=== PATIENT | female | born 1990 | race Caucasian/White ===

== ENCOUNTER 2017-06-27 14:58 | Emergency (ER) | payer SELFPAY ==
[~2017-06-27] VITALS: Ht 162.6 cm; Wt 79.4 kg
[2017-06-27 15:03] VITALS: Ht 162.6 cm; Wt 79.4 kg
[2017-06-27 17:46] VITALS: BP 116/75
== END 2017-06-27 17:46 | disposition home or self-care (01) ==
LOC: ED 14:58
DX: S61.412A Laceration without foreign body of left hand, initial encounter (principal); W26.8XXA Contact with other sharp object(s), not elsewhere classified, initial encounter; Y93.89 Activity, other specified; Y99.8 Other external cause status; Y92.89 Other specified places as the place of occurrence of the external cause
CPT/HCPCS: 90715; J2001

== ENCOUNTER 2018-06-29 12:01 | Emergency (ER) | payer OTHER ==
[~2018-06-29] VITALS: Ht 162.6 cm; Wt 83.9 kg
[2018-06-29 12:20] VITALS: Ht 162.6 cm; Wt 83.9 kg
[2018-06-29 13:25] VITALS: BP 108/74
== END 2018-06-29 13:25 | disposition home or self-care (01) ==
LOC: ED 12:01
DX: H10.9 Unspecified conjunctivitis (principal)